=== PATIENT | male | born 1945 | race Caucasian/White ===

== ENCOUNTER → 2021-04-13 10:59 | Outpatient (CLI) | payer MEDICARE, OTHER, SELFPAY ==
--- NOTE | 2021-04-13 | DI.MRI.S_ITS ---
PROCEDURE: MR LUMBAR SPINE WO CON INDICATIONS: Radiculopathy, lumbar region TECHNIQUE: Noncontrast sagittal T1 spin echo and T2 fast echo, sagittal STIR, axial T1 and T2 fast spin echo through the lumbar spine. In cases with scoliosis, additional coronal T2 fast spin echo may be performed. COMPARISON: [facility], CT, KIDNEY/ URETER/BLADDER, 10/04/2017, 10:50. FINDINGS: Image quality: Excellent. Alignment and Curvature: S shaped thoracolumbar scoliosis noted. Bone Marrow: Degenerative endplate changes noted at L4-5. No acute vertebral body compression fractures. Anterior interbody fusion or non segmentation noted at T10-11 and T11-12, better depicted on the prior CT Spinal Cord: Conus medullaris terminates at the L1 level. Visualized cord demonstrates normal signal and size. Paraspinous Soft Tissues: No paravertebral masses. T12-L1: Disc space narrowing and anterior osteophyte present. No central stenosis. Minimal retrolisthesis and facet hypertrophy results in moderate bilateral foraminal stenosis. L1-L2: Moderate disc space narrowing and circumferential disc bulge associated with mild central stenosis. Hypertrophic facet joints result in moderate left and severe right foraminal stenosis. L2-L3: Moderate disc space narrowing, circumferential disc bulge and hypertrophic facet joints associated mild central stenosis and effacement of the lateral recesses. There is severe bilateral foraminal stenosis. L3-L4: Moderate disc space narrowing, circumferential disc bulge combines with ligamentum flavum laxity and hypertrophic facet joints to result in severe central stenosis, narrowing the AP diameter of the thecal sac to 8 mm. There is severe bilateral foraminal stenosis present as well. L4-L5: Moderate disc space narrowing with circumferential disc bulge and hypertrophic facet joints results in grade 1 anterior spondylolisthesis of L4 on L5. Ligamentum flavum redundancy present as well. There is severe central stenosis, narrowing the AP diameter of the thecal sac to 6 mm. Severe bilateral foraminal stenosis greater on the right. L5-S1: Moderate disc space narrowing with circumferential disc bulge and hypertrophic facet joints present. Mild central stenosis and moderate bilateral foraminal stenosis present. IMPRESSION: 1. Multilevel degenerative disc disease, thoracolumbar S-shaped scoliosis, and arthropathy resulting in varying degrees of central and foraminal stenosis including severe central and bilateral foraminal stenosis at L3-4 and L4-5. 2. Anterior interbody fusion or non segmentation at T10-11 and T11-12 is partially imaged and better depicted on prior 2018 CT. Approved by: Diogenes Parrish M.D. on 04/13/2021 at 16:14
== END ==
PROVIDERS: PCP Family Medicine; Referring Provider Orthopaedic Surgery; Visit Provider Orthopaedic Surgery
DX: M51.16 Intervertebral disc disorders with radiculopathy, lumbar region (principal); M51.17 Intervertebral disc disorders with radiculopathy, lumbosacral region; M41.85 Other forms of scoliosis, thoracolumbar region; M47.26 Other spondylosis with radiculopathy, lumbar region; M47.27 Other spondylosis with radiculopathy, lumbosacral region; M48.061 Spinal stenosis, lumbar region without neurogenic claudication; M48.07 Spinal stenosis, lumbosacral region; Z98.1 Arthrodesis status
CPT/HCPCS: 72148

== ENCOUNTER → 2021-06-29 08:58 | Outpatient (CLI) | payer MEDICARE, OTHER, SELFPAY ==
[2021-06-29 10:10] LABS: Add Manual Diff / Slide Review NO; Basophils Absolute Auto 100 /uL (0-100); Basophils Percent Auto 0.9 % (0-2); Eosinophils Absolute Auto 300 /uL (0-450); Eosinophils Percent Auto 4.6 % (2-4); Hematocrit 40.1 % (41-53); Hemoglobin 13.4 g/dL (13.5-17.5); Lymphocytes Absolute Auto 1800 /uL (1100-4500); Lymphocytes Percent Auto 30.5 % (25-40); Mean Corpuscular HGB Conc 33.3 % (30-36); Mean Corpuscular Hemoglobin 31.6 PG (26-34); Mean Corpuscular Volume 94.8 fL (80-100); Monocytes Absolute Auto 700 /uL (0-900); Monocytes Percent Auto 11.5 % (3-14); Neutrophils Absolute Auto 3100 /uL (1500-7000); Neutrophils Percent Auto 52.5 % (50-75); Platelet Count 258 X10^3/uL (150-400); Red Blood Cell Count 4.23 X10^6/uL (4.5-5.9); Red Cell Distribution Width 13.6 % (11.6-14.8); White Blood Cell Count 5.9 X10^3/uL (4.5-11.0)
[2021-06-29 10:12] LABS: Hemoglobin A1C% w Est Avg Glu 5.2 % (4.0-6.0)
[2021-06-29 10:33] LABS: BUN Creatinine Ratio 30.3 (6-22); Blood Urea Nitrogen 20 mg/dL (9-20); Calcium 9.5 mg/dL (8.4-10.2); Carbon Dioxide 27 mmol/L (22-32); Chloride 103 mmol/L (98-107); Estimated Glomerular Filt Rate > 60.0 mL/min (>60); Glucose 97 mg/dL (80-110); HEMOLYSIS < 15 (0-50); Potassium 4.2 mmol/L (3.4-5.1); Sodium 138 mmol/L (137-145)
== END ==
PROVIDERS: PCP Family Medicine; Referring Provider Orthopaedic Surgery; Visit Provider Orthopaedic Surgery
DX: Z01.818 Encounter for other preprocedural examination (principal); R73.9 Hyperglycemia, unspecified; M25.562 Pain in left knee
CPT/HCPCS: 36415; 80048; 83036; 85025; 93005; 93010

== ENCOUNTER 2021-07-11 08:57 | Observation (INO) | payer MEDICARE, OTHER, SELFPAY ==
[2021-06-28 13:42] VITALS: BMI 24.5
[2021-07-10] VITALS (8 sets, daily range): BP systolic 101–138; BP diastolic 53–86; PULSE 68–78; RESP 10–19; TEMP 36.6–36.8; O2SAT 94–99; BMI 25.5
[2021-07-10] MEDS: PREGABALIN 75 MG CAPSULE PO (14:06)
[2021-07-10] MEDS: CELECOXIB 200 MG CAPSULE PO (14:06)
[2021-07-10] MEDS: ACETAMINOPHEN 325 MG TABLET 975 MG PO (14:07)
[2021-07-10 14:25] LABS: COVID19 -Nasal RAPID Negative (Negative)
[2021-07-10] MEDS: LACTATED RINGERS 1,000 ML 42 ML IV (14:29)
--- NOTE | 2021-07-10 14:41 | SUR.OPER ---
Supine on padded OR bed. Pillow under head, arms secured on padded armboards <90 degree abduction. Safety belt across torso. Non-operative leg secured with tape over blanket over lower leg. Operative leg secured in [employer] positioner. Foam padded brace at thigh of operative leg.
--- NOTE | 2021-07-10 14:45 | DI.RAD.S_ITS ---
PROCEDURE: XR KNEE LT 1TO2V INDICATIONS: postop prosthesis placement TECHNIQUE: 2 views of the knee were acquired. COMPARISON: None. FINDINGS: Bones: Status post left total knee arthroplasty. There is expected post operative alignment. Hardware appears intact. No acute fracture. Soft tissues: Expected postsurgical sequela IMPRESSION: Expected post operative appearance Dictated by: Dima Phelps M.D. on 07/11/2021 at 10:01 Approved by: Dima Phelps M.D. on 07/11/2021 at 10:02
--- NOTE | 2021-07-10 14:52 | PM.PREOP ---
Pre-operative Note COVID-19 COVID-19 status: Negative Result date/Date tested (Pos, Neg/Pending): 07/10/21 Interval Note History & Physical reviewed/Exam performed by Physician: Yes Changes to H&P: No
[2021-07-10] MEDS: CEFAZOLIN 1 GM VIAL 2 GM IV (15:48)
[2021-07-10] MEDS: TRANEXAMIC ACID 1,000 MG VIAL 1000 MG INJ ×2 (15:49→16:49)
--- NOTE | 2021-07-10 15:58 | PM.PROC.1 ---
Procedures Date/Time Date of procedure: 07/10/21 Time of procedure: 15:24 Nerve Block Time out performed: Yes Local anesthetic used: bupivacaine 0.25% Location of anesthetic used: LEFT Amount of anesthesia used (mL): 20 Nerve blocks: femoral (adductor canal) Procedure successful: Yes Patient tolerated procedure: well and no complications Complications: none Additional comments: Adductor canal nerve block performed for post-op pain control at surgeon request. Patient was positioned with IV, O2, monitors and rescue meds available. Prepped and timeout performed. Target identified with continuous ultrasound guidance. 20 mL of bupivicaine 0.25% was injected perineurally with intermittent aspiration and injection. No blood, no paresthesias, no acute complications. Ultrasound pic attained.
[2021-07-10] MEDS: BUPIVACAINE 0.25% (PF) 60 ML, EPINEPHrine 0.3 MG INJ (16:10)
[2021-07-10] MEDS: BUPIVACAINE LIPOSOME 266 MG/20 ML VIAL INJ (16:10)
[2021-07-10] MEDS: MORPHINE 4 MG/ML INJ INJ (16:11)
--- NOTE | 2021-07-10 17:13 | PM.OP.1 ---
Operative Date/Time/Diagnoses Date of procedure: 07/10/21 Time of procedure: 17:13 Pre-op diagnosis: Left knee osteoarthritis Post-op diagnosis: same Procedure & Clinicians Procedure: Left total knee replacement Same procedure as scheduled: Yes Indications: The patient has had progressively worsening left knee pain with radiographic changes consistent with arthritis. Non-operative management has failed and the patient has requested total knee replacement. The risks, benefits and alternatives to surgery were discussed with the patient prior to proceeding. Risks discussed included, but were not limited to, failure to relieve pain, stiffness, infection, nerve damage, deep venous thrombosis, pulmonary embolism, stroke, coma, heart attack, permanent paralysis and , as well as the potential need for eventual revision of the prosthetic. Surgeon: Delonte Magaña [employer] Internship: Bhargav Bowers Click Yes if Unassisted: No Anesthesia Type: General, Peripheral nerve block and Local Operative Notes Findings: Severe tricompartmental osteoarthritis, worst in the medial compartment. Closure Type: primary Specimen(s): none sent Prosthetic devices, grafts, tissues, transplants, or devices: Implants used in this procedure were manufactured by the [employer] and included the BCS II Journey total knee replacement with a size 8 cobalt chromium femoral component, a size 8 left tibial base plate, a 9 mm cross-linked polyethylene insert and a 41 mm oval Davida II patellar component. Applied: implant(s) Estimated Blood Loss (mL): 25 Blood products transfused: none Tourniquet time (min): 50 Procedure in detail: The patient was seen in the pre-operative area, where the left knee was identified as the operative site and this was marked with my initials. The patient received pre-operative antibiotics, and was taken to the operating room and placed on the operative table in the supine position. After satisfactory anesthesia, a multimedia coordinator out was performed. The left leg was encircled with a tourniquet about the proximal thigh, and the leg was prepared from the toes to the tourniquet with ChloroPrep in the usual fashion and draped through sterile drapes. The leg was elevated and exsanguinated with Eschmark bandage and the tourniquet inflated to 250 mmHg pressure. The knee was approached through an approximately 18 cm incision centered over the patella and carried into the knee through a medial parapatellar arthrotomy. The anterior osteophytes and soft tissues were removed. The rotational landmarks of Schley's line and the transepicondylar axis were marked on the femur with electrocautery, and intramedullary guide holes for the femur and tibia were created. The distal femoral cut was made in 6 degrees of valgus using the intramedullary guide at the primary cut setting. The proximal tibial cut was then made using the intramedullary guide, taking 9 mm of bone off the less involved side. The extension gap was checked and the rotation of the femoral component confirmed with the gap balancing blocks. The anterior, posterior and chamfer cuts were then made. The posterior osteophytes and soft tissues were then removed. The posterior capsule was injected with part of a mixture of 60 ml 0.25% Marcaine mixed with 20 ml Exparel and 4 mg of morphine for post-operative pain control. The remainder of this mixture was injected into the capsule and subcutaneous tissues during cement curing. The tibia was prepared with the rotation set by an extra medullary guide. Trial tibial and femoral components were then placed and the intercondylar notch cut through the femoral trial. Range of motion was 0-135 degrees, with good stability throughout the range. The patella was then cut to accommodate the patellar prosthetic. There was no need for a lateral release. The trials were then removed, and the femoral hole plugged with a bone plug. The bone was prepared with pulsatile lavage, and dried with a sponge. Cement was applied and the final prosthetics placed. Excess cement was removed during and after cement curing. After confirming there was no extruded cement posteriorly, the final tibial insert was placed. The knee was copiously irrigated and the tourniquet deflated. Hemostasis was obtained. The capsule was closed with interrupted # 2 polyester sutures. The subcutaneous layer was closed with 3-0 Vicryl, and the skin with a running 3-0 V-Lock suture and Dermabond. An Aquacel Ag dressing was applied and the patient was taken to recovery having tolerated the procedure well. Complications: none Post-operative Condition: stable Disposition: PACU Plan for aftercare: The patient will be maintained on a standard total knee replacement protocol with weight bearing as tolerated. The patient will receive aspirin and sequential compression devices for DVT prophylaxis. The patient will be discharged home when safe for the home environment.
[2021-07-10] MEDS: fentaNYL 100 MCG/2 ML INJ IV ×3 (17:24→17:42)
[2021-07-10] MEDS: OXYCODONE IR 5 MG TABLET PO (17:53)
--- NOTE | 2021-07-10 18:08 | SUR.PHASEI ---
180 Report given to Delfina on acute care. Transporting patient half an hour post last fentanyl dose. VSS, pain 11/26
[2021-07-10] MEDS: LACTATED RINGERS 1,000 ML 100 ML IV (19:39)
[2021-07-10] MEDS: DOCUSATE 100 MG CAPSULE PO (20:12)
[2021-07-10] MEDS: ASPIRIN EC 81 MG TABLET PO (20:12)
[2021-07-10] MEDS: ACETAMINOPHEN 325 MG TABLET 650 MG PO (20:12)
[2021-07-10] MEDS: OXYCODONE IR 10 MG TABLET PO (21:30)
[2021-07-11] MEDS: OXYCODONE IR 5 MG TABLET PO ×2 (01:29→14:18)
[2021-07-11 04:21] VITALS: BP 116/63; PULSE 68; RESP 18; TEMP 36.8; O2SAT 95
[2021-07-11] MEDS: LACTATED RINGERS 1,000 ML 100 ML IV (05:44)
[2021-07-11] MEDS: OXYCODONE IR 10 MG TABLET PO (06:25)
[2021-07-11 07:32] LABS: Hematocrit 37.4 % (41-53); Hemoglobin 12.4 g/dL (13.5-17.5)
[2021-07-11 08:07] VITALS: BP 108/63; PULSE 74; RESP 16; TEMP 37.4; O2SAT 95
[2021-07-11] MEDS: ASPIRIN EC 81 MG TABLET PO (08:23)
[2021-07-11] MEDS: ACETAMINOPHEN 325 MG TABLET 650 MG PO (08:24)
[2021-07-11] MEDS: sulfaSALAzine 500 MG TABLET PO (08:24)
[2021-07-11] MEDS: DOCUSATE 100 MG CAPSULE PO (08:24)
[2021-07-11 08:45] VITALS: O2SAT 95
--- NOTE | 2021-07-11 09:30 | PT.IIE ---
Current Diagnoses Unilateral primary osteoarthritis, left knee (07/11/21) Encounter for procedure for purposes other than remedying health state, unspecified (07/11/21) Surgery Performed Operation Date: 07/10/21 14:45 Actual Procedures p Total Knee Arthroplasty(Left) - Delonte Magaña MD Medical History (Last Reviewed 07/11/21 @ 11:[address] Cho PA-C) Elevated cholesterol [place] (hard of hearing) Kidney stones Osteoarthritis Ulcerative colitis Physical Therapy Inpatient Evaluation/Re-Eval M1 PT/OT-IP Prior Functional Status Start: 07/11/21 12:46 Freq: NEEDED Status: Active Protocol: Document 07/11/21 09:30 AB (Rec: 07/11/21 13:02 AB [id number]) Medical Review Prior Functional Status Medical History Reviewed Yes Communication able to make needs known Mobility and Gait pt stated that he is independent with all mobilities and ambulation without AD Social History Household Members spouse Living Arrangements House Number of Floors (Floors) Two Floors Number of Stairs To Enter/Railing? pt stays on main level of the house has 2 steps without rails to enter Home Environment High Toilet,Walk in Shower, Built-In Shower Seat Home Equipment Front Wheel Walker,Straight Cane,Hand Held Shower,Grab Bars Near Toilet,Grab Bars In Shower M2 PT-IP Current Condition Start: 07/11/21 12:46 Freq: NEEDED Status: Active Protocol: Document 07/11/21 09:30 AB (Rec: 07/11/21 13:02 AB [email or web address]) Physical Therapy Current Condition Current Condition Evaluation Date 07/11/21 Treatment Diagnosis s/p L TKA; difficulty in walking Onset Date 07/10/21 M3 PT-IP Subjective Start: 07/11/21 12:46 Freq: NEEDED Status: Active Protocol: Document 07/11/21 09:30 AB (Rec: 07/11/21 13:02 AB [email or web address]) Subjective Physical Therapy Visit Type Type Initial Evaluation Visit Start Time 09:30 Visit Stop Time 10:36 Total Visit Minutes 66 Number of POULTRY HUSBANDRY TEACHER Visits 0 Physical Therapy Visit Comments Patient Comments agreeable to do PT Therapy Pain Assessment Pain When Pain Assessed At Rest Pain Present Pain Present Pain Reported Location Left Knee Intensity 1 Scale Used increases to 3/10 witih mobility Pain Management Techniques Distraction,Modification of Treatment,Re-positioning, Timing of Activity with Medications M4 PT-IP Mobility and Gait Start: 07/11/21 12:46 Freq: NEEDED Status: Active Protocol: Document 07/11/21 09:30 AB (Rec: 07/11/21 13:02 AB [id number]) PT-Bed Mobility Assessment Supine to Sit Supine to Sit Standby Assistance PT-Transfer Assessment Sit to and From Stand Sit to and from Stand Contact Guard Assistance, Minimal Assistance,Use of Upper Extremities Equipment Transfer Assistive Device Gait Belt,Front Wheeled Walker Orthotic/Prosthetic Devices or Brace: No Transfers Transfer Destination Chair Transfer Technique ambulated using FWW Transfer Ability Level of Assist Minimal Assistance,Moderate Assistance,1 Person Assistance ,Use of Upper Extremities Comments Mobility Comments pt completed supine to sit SBA . able to sit on EOB SBA. completed sit to stand min A and cues. ambulated in room ~ 10 ft mod A using FWW. initial L knee buckling. pt cued for quads activation and stabilizing LLE. pt sat on chair. educated pt on safety and techniques. completed sit to stand from chair CGA. repeated x 2 reps. completed ambulation in room using FWW 40 ft min A and cues. pt presents with increase forward flexion in standing and tends not to use LLE to weight bear. educated pt on techniques and importance of muscle re education and pt stated that he has been moving and doing things that way for a long time. agreed to correct after education. educated pt on stair climbing using SPC. completed up/down step stool mod A to max and cues requiring use of SPC and ORNAMENTAL METAL WORKER. pt sat back on chair and positioned. call light and table placed within reach. informed pt regarding caregiver training. pt initially does not want caregiver training and [place] . informed pt regarding assistance level and safe d/c requirements and agreed with caregiver training. informed nurse regarding pt's mobility and caregiver training plan for the afternoon. Gait Assessment Gait Gait Assistance Required: Minimum Assistance,Moderate Assistance,1 Person Assist Distance (Feet) 40 Able to Maintain Weight Bearing Status Yes During Gait Assistive Devices Assistive Device Gait Belt,Front Wheeled Walker Orthotic/Prosthetic Devices or Brace: No Gait Deviations General Gait Pattern Antalgic,Decreased Stride Length,Decreased Feet Clearance,Step-to Gait Factors Limiting Gait Function Factors Limiting Gait Function Decreased Activity Tolerance, Decreased Strength,Difficulty Following Directions,Limited Range of Motion,Pain,Poor Balance,Poor Safety Awareness Stair Climbing Assessment Evaluation Level of Assist On Stairs Moderate Assistance,Maximal Assistance,1 Person Assistance Devices Stair Climbing Assistive Devices Straight Cane Technique/Endurance Stair Climbing Direction Ascend and Descend Stair Climbing Technique Step to Step Number of Steps Climbed 1 Query Text: Stair Climbing Set # Repetitions (reps) 2 Comments Stair Climbing Comments pls refer to mobiltiy section for details PT-Balance Assessment Sitting Balance and Reactions Static Sitting Balance Ability Good Dynamic Sitting Balance Ability Good Standing Balance and Reactions Static Standing Balance Ability Fair Dynamic Standing Balance Ability Fair Device Used FWW M5 PT-IP Objective Assessments Start: 07/11/21 12:46 Freq: NEEDED Status: Active Protocol: Document 07/11/21 09:30 AB (Rec: 07/11/21 13:02 [email or web address]) Orientation Orientation/Cognition Level of Alertness Alert Orientation Name Language Function Ability No Deficits Noted Safety Awareness Decreased Safety Awareness Memory Description Short Term Impaired Gross Range of Motion Lower Extremity ROM Assessment Left Impaired Impairments L knee flexion ~ 90 deg L knee extension: 20 deg less to 0 Strength Lower Extremity Strength Assessment Left Impaired Hip 4-/5 Knee 3+/5 Sensation Assessment Sensation Gross Sensation WNL Muscle Tone Muscle Tone WNL Yes M6 PT-IP Treatment Start: 07/11/21 12:46 Freq: NEEDED Status: Active Protocol: Document 07/11/21 09:30 AB (Rec: 07/11/21 13:02 [email or web address]) Physical Therapy Treatment Education Education Provided Precautions,Weight Bearing Status,Post-Op Packet,Safety M7 PT-IP Assessment and Plan Start: 07/11/21 12:46 Freq: NEEDED Status: Active Protocol: Document 07/11/21 09:30 AB (Rec: 07/11/21 13:02 [facility]) PT Summary Assessment and Plan Potential Rehabilitation Potential Fair Status of Condition at Evaluation Stable Summary Impairments Pain,ROM,Strength,Balance, Coordination,Sensation,Tone, Cognition,Bed Mobility, Transfers,Gait,Activity Tolerance Assessment Summary pt requiring min A for ambulation using FWW and max A for stair climbing. caregiver training will be conducted this afternoon. pt plans to go home and spouse to assist him. pt stated that he has outpt PT set up. will assess progress for safe d/c plan. Goals Bed Mobility Goal Independent Transfer Goal Independent,Front Wheeled Walker Gait Goal Independent,Front Wheel Walker Gait Distance 300 Other Goals up/down 2 steps SPC mod I Days to Meet Goals 5 Frequency of Treatment Frequency Of Treatment Twice a Day Treatment Plan Physical Therapy Treatment Plan Bed Mobility Training,Transfer Training,Gait Training, Therapeutic Exercise,Balance Retraining,Post Op Education, Discharge Planning,Hot or Cold Pack,Neuromuscular Re-ed, Coordination Retraining,Manual Therapy Weight Bearing Status Weight Bearing Status Weight Bear as Tolerated Allowed Weight Bearing Amount (enter % LLE WBAT or #) (%) Recommendations To Nursing Amount of Assist Needed 1 Person Assist Discharge Recommendations PT Discharge Recommendations Home with Assistance, Outpatient PT Transportation Needs at Discharge Private Vehicle
--- NOTE | 2021-07-11 11:30 | P.DS_ITS ---
History of Present Illness History of Present Illness Date Patient Seen: 07/11/21 Time Patient Seen: 11:32 Chief complaint: Left knee pain s/p left TKA Narrative: Patient is complaining of [id number] left knee pain after his total knee yesterday. He denies any new numbness or tingling. No fevers, chills, night sweats. No shortness of breath or chest pain. Overall he is feeling well and would like to be discharged home to [facility] today. Discharge Providers Provider Date of admission: 07/11/21 08:57 Discharge Date: 07/11/21 Primary care physician: Desmond Brooks MD Consults: 07/10/21 18:10 Consult to Discharge Planning Routine Comment: Consult to Physical Therapy Evaluate & Treat Comment: Physician Instructions: postop TKA protocol Consult to Respiratory Therapy Evaluate & Treat Comment: Physician Instructions: Evaluate and treat Discharge provider: Court Cho PA-C Summary Hospital Course Discharge Diagnosis: Left knee osteoarthritis Hospital Course: Date of procedure: 07/10/21 Time of procedure: 17:13 Procedure & Clinicians Procedure: Left total knee replacement Same procedure as scheduled: Yes Indications: The patient has had progressively worsening left knee pain with radiographic changes consistent with arthritis. Non-operative management has failed and the patient has requested total knee replacement. The risks, benefits and alternatives to surgery were discussed with the patient prior to proceeding. Risks discussed included, but were not limited to, failure to relieve pain, stiffness, infection, nerve damage, deep venous thrombosis, pulmonary embolism, stroke, coma, heart attack, permanent paralysis and , as well as the potential need for eventual revision of the prosthetic. Surgeon: Delonte Magaña Poultry Cutter: Bhargav Bowers Click Yes if Unassisted: No Anesthesia Type: General, Peripheral nerve block and Local Operative Notes Findings: Severe tricompartmental osteoarthritis, worst in the medial compartment. Closure Type: primary Specimen(s): none sent Prosthetic devices, grafts, tissues, transplants, or devices: Implants used in this procedure were manufactured by the [employer] and included the BCS II Journey total knee replacement with a size 8 cobalt chromium femoral component, a size 8 left tibial base plate, a 9 mm cross-linked polyethylene insert and a 41 mm oval Davida II patellar component. Applied: implant(s) Estimated Blood Loss (mL): 25 Blood products transfused: none Tourniquet time (min): 50 Status at Discharge Cognitive/behavioral status at discharge: oriented Functional status at discharge: uses cane/walker Overall status at discharge: patient is progressing back to baseline Exam Vital Signs (past 8 hours): - 07/11/21 04:21 07/11/21 08:07 07/11/21 08:45 Temperature 98.3 F 99.3 F Pulse Rate 68 74 Respiratory Rate 18 16 Blood Pressure 116/63 108/63 Pulse Oximetry 95 95 95 Oxygen Delivery Method Room Air Oxygen Flow Rate 0 Narrative Exam Narrative: Pleasant 76-year-old male, resting comfortably in his chair, no acute distress. Dressing is clean, dry, intact. Bilateral lower extremities: Motor function is grossly intact, sensation is grossly intact to light touch. Calves are soft, nontender to palpation. Objective Labs Result Diagrams: 07/11/21 06:28 Labs: Laboratory Results - last 24 hr 07/10/21 07/11/21 14:00 06:28 Hgb 12.4 L Hct 37.4 L SARS-CoV-2 (PCR) Negative PFSH Medical History Elevated cholesterol [place] (hard of hearing) Kidney stones Osteoarthritis Ulcerative colitis Surgical History History of vasectomy Hx of tonsillectomy S/P foot surgery, left Family History Grandmother Alzheimer's disease Mother Alzheimer's disease Social History household members: spouse Smoking Status: Former smoker alcohol intake: current Discharge Assessment & Plan Assessment and Plan Assessment: Stable status post left total knee arthroplasty Plan of Treatment: -mobilize with PT. Weightbearing as tolerated front wheel walker -continue with current pain regimen and DVT prophylaxis -DC home today to [facility] via the [place], once cleared by PT Discharge Plan Discharge Plan Patient Disposition: Home Discharge orders & Medications Prescriptions: New acetaminophen 500 mg capsule 500 mg PO Q4H MDD Max 6 tabs per day PRN (Reason: fever or pain) Qty: 90 0RF aspirin 81 mg Tablet,Delayed Release (Dr/Ec) 81 mg PO BID 42 Days Qty: 84 0RF Rx Instructions: Prevent blood clots docusate sodium 100 mg Capsule 100 mg PO BID Qty: 30 0RF oxycodone 5 mg Tablet See Rx Instructions .ROUTE .COMPLEX PRN (Reason: Pain, Moderate (4-6)) Qty: 42 0RF Rx Instructions: Take 1-2 tablets by mouth every 4 hours as needed for moderate to severe postoperative pain Continued sulfasalazine 500 MG tablet 500 mg PO Q DAY Qty: 90 1RF Follow up/Referrals: Delonte Magaña MD [Physician] - (10-14 days for postoperative visit) Desmond Brooks MD [Primary Care Provider] - Diet/Activity/Treatments Diet: Diet as Tolerated and Regular Other treatments: Medications: -Aspirin 81mg twice daily x6 weeks to prevent blood clots. -OTC Tylenol 500 mg 1 tablet every 4 hours as needed for pain/fever. Max 6 tablets per day. -Oxycodone 5 mg take 1-2 tablets every 4 hours as needed for moderate-severe pain (narcotic pain medication). -As needed medications: -Ducolax and /or MiraLax as needed for constipation from narcotic pain medications. -Pepcid AC as needed for stomach upset (usually from aspirin or ibuprofen). Dressing/Wound care: -Remove the Jon wrap 48 hours after surgery. -Keep Aquacell dressing in place until postoperative follow-up office visit. -Okay to shower. Keep wound out of direct water stream. No soaking or submerging until all the scabs fall off (approximately 6 weeks). -Please call the office if dressing becomes wet, soiled, or saturated. Activities: -Weight-bearing as tolerated. Use front wheeled walker, and progress to cane wh en safe. -Continue with home exercises as directed by your physical therapist. -Elevate ?toes above the nose if you have significant swelling in your lower leg. (A wedge pillow is easiest.) -Ice your incision as needed for pain/inflammation/swelling. Protect your skin with a folded pillowcase. Follow-up: -Follow-up with your surgeon or PA in the office in 10-14 days after surgery. -Follow-up with your surgeon 6 weeks postoperatively. Call the office if you have chest pain, shortness of breath, significant swelling that will not resolve with elevating, fever over 101?, significantly worsening pain. [facility]: [phone] Skin/Wound/Dressing Care Report to your healthcare provider any signs of infection, such as:: chills, fever, night sweats, unusual drainage and unusual redness Visit Report/Discharge Packet Instructions: DI for Knee Replacement, DI for Prescription Opioid Use Stand Alone Forms: Surgery Discharge Discharge Data Primary Care Provider: Desmond Brooks Attending Provider: Delonte Magaña Quality VTE Deep Vein Thrombosis/Pulmonary Embolism Present on Admission: No
--- NOTE | 2021-07-11 11:55 | PT.IPTN ---
Current Diagnoses Unilateral primary osteoarthritis, left knee (07/11/21) Encounter for procedure for purposes other than remedying health state, unspecified (07/11/21) Surgery Performed Operation Date: 07/10/21 14:45 Actual Procedures p Total Knee Arthroplasty(Left) - Delonte Magaña MD Physical Therapy Treatment Note M2 PT-IP Current Condition Start: 07/11/21 12:46 Freq: NEEDED Status: Active Protocol: Document 07/11/21 09:30 AB (Rec: 07/11/21 13:02 AB [email or web address]) Physical Therapy Current Condition Current Condition Evaluation Date 07/11/21 Treatment Diagnosis s/p L TKA; difficulty in walking Onset Date 07/10/21 M3 PT-IP Subjective Start: 07/11/21 12:46 Freq: NEEDED Status: Active Protocol: Document 07/11/21 11:55 AB (Rec: 07/11/21 13:09 AB [email or web address]) Subjective Physical Therapy Visit Type Type Treatment Note Visit Start Time 11:55 Visit Stop Time 12:20 Total Visit Minutes 25 Number of COTTON TIER Visits 0 Physical Therapy Visit Comments Patient Comments pt's spouse arrived for caregiver training; pt requested early 2nd session to catch the after ferry to go home Therapy Pain Assessment Pain When Pain Assessed At Rest Pain Present Pain Present Pain Reported Location Left Knee Intensity 5 Scale Used Numeric (0 - 10) Pain Management Techniques Distraction,Modification of Treatment,Re-positioning, Timing of Activity with Medications M4 PT-IP Mobility and Gait Start: 07/11/21 12:46 Freq: NEEDED Status: Active Protocol: Document 07/11/21 11:55 AB (Rec: 07/11/21 13:09 AB [email or web address]) PT-Transfer Assessment Sit to and From Stand Sit to and from Stand Contact Guard Assistance Equipment Transfer Assistive Device Gait Belt,Front Wheeled Walker Orthotic/Prosthetic Devices or Brace: No Comments Mobility Comments caregiver training conducted. educated spouse on how to use safety belt and how to assist pt. pt stated that he is ok with bed mobility and does not need to do training with bed mobility. spouse was able to put safety belt on pt. assisted pt with sit to stand and ambulation in room using fWW min A. educated spouse on how to assist pt with stair climbing. pt ambulated out of his room using FWw with spouse assisting min A ~ 40 ft and completed up/down platform step using SPC and URGENT CARE NURSE PRACTITIONER. completed up/down steps x 5 reps. spouse was able to assist pt with stairs. pt ambulated back to his room and sat on chair. pt and spouse has no other concerns. call light and table placed within reach. informed nurse that pt is cleared to d/c home with spouse to assist. Gait Assessment Gait Gait Assistance Required: Minimum Assistance Distance (Feet) 30 Able to Maintain Weight Bearing Status Yes During Gait Assistive Devices Assistive Device Gait Belt,Front Wheeled Walker Orthotic/Prosthetic Devices or Brace: No Gait Deviations General Gait Pattern Antalgic,Decreased Stride Length,Decreased Feet Clearance Factors Limiting Gait Function Factors Limiting Gait Function Decreased Activity Tolerance, Decreased Strength,Difficulty Following Directions,Limited Range of Motion,Pain,Poor Balance,Poor Safety Awareness Stair Climbing Assessment Evaluation Level of Assist On Stairs Moderate Assistance,1 Person Assistance Devices Stair Climbing Assistive Devices Straight Cane Technique/Endurance Stair Climbing Direction Ascend and Descend Stair Climbing Technique Step to Step Number of Steps Climbed 1 Stair Climbing Set # Repetitions (reps) 5 Comments Stair Climbing Comments pls refer to mobility section for details M5 PT-IP Objective Assessments Start: 07/11/21 12:46 Freq: NEEDED Status: Active Protocol: Document 07/11/21 09:30 AB ([email or web address] Orientation Orientation/Cognition Level of Alertness Alert Orientation Name Language Function Ability No Deficits Noted Safety Awareness Decreased Safety Awareness Memory Description Short Term Impaired Gross Range of Motion Lower Extremity ROM Assessment Left Impaired Impairments L knee flexion ~ 90 deg L knee extension: 20 deg less to 0 Strength Lower Extremity Strength Assessment Left Impaired Hip 4-/5 Knee 3+/5 Sensation Assessment Sensation Gross Sensation WNL Muscle Tone Muscle Tone WNL Yes M6 PT-IP Treatment Start: 07/11/21 12:46 Freq: NEEDED Status: Active Protocol: Document 07/11/21 11:55 AB (Rec: 07/11/21 13:[email or web address] Physical Therapy Treatment Education Education Provided Safety M7 PT-IP Assessment and Plan Start: 07/11/21 12:46 Freq: NEEDED Status: Active Protocol: Document 07/11/21 11:55 AB (Rec: 07/11/21 13:09 AB [email or web address]) PT Summary Assessment and Plan Potential Rehabilitation Potential Good Summary Impairments Pain,ROM,Strength,Balance, Coordination,Sensation,Tone, Cognition,Bed Mobility, Transfers,Gait,Activity Tolerance Progress Towards Goals Slow Progress due to Pain Assessment Summary caregiver training conducted and spouse was able to assist pt safely. pt plans to go home with spouse to assist and has outpt PT scheduled. pt may go home when medically stable. Goals Bed Mobility Goal Independent Transfer Goal Independent,Front Wheeled Walker Gait Goal Independent,Front Wheel Walker Gait Distance 300 Other Goals up/down 2 steps SPC mod I Days to Meet Goals 5 Frequency of Treatment Frequency Of Treatment Twice a Day Treatment Plan Physical Therapy Treatment Plan Bed Mobility Training,Transfer Training,Gait Training, Therapeutic Exercise,Balance Retraining,Post Op Education, Discharge Planning,Hot or Cold Pack,Neuromuscular Re-ed, Coordination Retraining,Manual Therapy Weight Bearing Status Weight Bearing Status Weight Bear as Tolerated Allowed Weight Bearing Amount (enter % LLE WBAT or #) (%) Recommendations To Nursing Amount of Assist Needed 1 Person Assist Discharge Recommendations PT Discharge Recommendations Home with Assistance, Outpatient PT Transportation Needs at Discharge Private Vehicle
[2021-07-11] MEDS: INFLUENZA HD VACCINE 0.7 ML SYRINGE IM (12:56)
--- NOTE | 2021-07-11 15:21 | PC.NURSE ---
Discharge Note Patient A&O, VSS, RA, no further complaints of pain/discomfort. Discharge packet reviewed with patient all questions/concerns addressed. PIV removed. All belongings packed and given to patient along with discharge packet. Patient taken down via wheelchair to POV with .
--- NOTE | 2021-07-11 15:33 | PC.NURSE ---
Discharge Note Patient A&O, VSS, no complaints of pain/discomfort. Discharge packet reviewed with patient and all questions/concerns addressed. PIV discontinued. All belongings packed and given to patient along with discharge packet. Patient aware that prescriptions for oxycodone were sent to preferred pharmacy. Per patient preferred pharmacy in [facility] to be closed upon arrival. This RN attempted to change prescriptions to a pharmacy in town that would be available prior to ferry boarding. [facility] medical assistant in OR at the time and this RN unable to contact by phone, voicemail left by this RN. Patient decided to go home and states that he will make it through the night and miner pick prescriptions in the morning. Patient and unable to wait for later ferry to [facility] and decided to go home. DONNA Cho updated when out of OR. Patient taken down via wheelchair to [facility].
== END 2021-07-11 14:45 | disposition home or self-care (01) ==
LOC: OR 09:09 → AC 09:09
PROVIDERS: Admitting Provider Orthopaedic Surgery; PCP Family Medicine; Referring Provider Orthopaedic Surgery; Visit Provider Orthopaedic Surgery
PROC: 0SRD0JZ Replacement of Left Knee Joint with Synthetic Substitute, Open Approach (ICD-10-PCS; CPT 27447; principal; 2021-07-10 14:45)
DX: M17.12 Unilateral primary osteoarthritis, left knee (principal); K50.90 Crohn's disease, unspecified, without complications; Z23 Encounter for immunization; Z20.822 Contact with and (suspected) exposure to COVID-19
CPT/HCPCS: 27447; 36415; 73560; 85014; 85018; 87635; 90471; 90662; 97161; 97530; C1776; C9803; G0378; C9290; J0171; J0690; J1100; J2270; J2405; J2704; J3010

== ENCOUNTER → 2022-03-21 15:26 | Outpatient (CLI) | payer MEDICARE, OTHER, SELFPAY ==
[2021-07-10 13:44] VITALS: BMI 25.5
--- NOTE | 2022-03-21 15:29 | DI.MRI.S_ITS ---
PROCEDURE: MR LUMBAR SPINE WO CON INDICATIONS: SPONDYLOLISTHESIS,LUMBAR REGION TECHNIQUE: Noncontrast sagittal T1 spin echo and T2 fast echo, sagittal STIR, and T2 fast spin echo through the lumbar spine. In cases with scoliosis, additional coronal T2 fast spin echo may be performed. COMPARISON: [facility], CR, XR LUMBAR SPINE 2 OR 3 VIEWS, 01/29/2022, 11:18. [facility], , MR LUMBAR SPINE WO CON, 04/13/2021, 11:14. FINDINGS: Image quality: Excellent. Alignment and Curvature: There is mild, approximately 9 millimeters of L4-L5 anterolisthesis. There is trace, approximately 2-3 millimeters of L1-L2, L2-L3 and L3-L4 retrolisthesis. Bone Marrow: Modic type 1 reactive endplate changes noted adjacent to the L4-L5 disc. Modic type 2 reactive endplate changes noted adjacent to the L5-S1 disc. No acute vertebral body compression fractures. Spinal Cord: Conus medullaris terminates at the T12-L1 disc level. Visualized cord demonstrates normal signal and size. Paraspinous Soft Tissues: No paravertebral masses. T12-L1: Loss of disc signal and height. Mild, diffuse disc bulge. Mild bilateral facet hypertrophy. Mild narrowing of the central canal. Mild bilateral neural foraminal narrowing. No neural compression. L1-L2: Loss of disc signal and height. Mild, diffuse disc bulge. Mild bilateral facet hypertrophy. Mild narrowing of the central canal. Mild bilateral neural foraminal narrowing. No neural compression. L2-L3: Loss of disc signal and height. Mild, diffuse disc bulge. Fglb-[id number] bilateral facet hypertrophy. Moderate ligamentum flavum hypertrophy. Mild to moderate narrowing of the central canal. Moderate bilateral neural foraminal narrowing. No neural compression. L3-L4: Loss of disc signal and height. Mild to moderate diffuse disc bulge. Moderate bilateral facet hypertrophy. Severe ligamentum flavum hypertrophy. Moderate to severe narrowing of the central canal. Severe right and moderate left neural foraminal narrowing with slight compression of the exiting right L3 nerve root. L4-L5: Loss of disc signal and height. Mild, diffuse disc bulge. Severe bilateral facet hypertrophy. Severe narrowing of the central canal with compression of the nerve roots of the cauda equina. Severe right and moderate left neural foraminal narrowing with slight compression of the exiting right L4 nerve root. L5-S1: Loss of disc signal and height. Mild, diffuse disc bulge. Moderate bilateral facet hypertrophy. Mild narrowing of the central canal. Moderate bilateral neural foraminal narrowing. No neural compression IMPRESSION: 1. Grade 1 L4-L5 degenerative spondylolisthesis. 2. Multilevel degenerative disc disease. 3. Multilevel facet arthropathy. 4. Severe L4-L5 central canal narrowing with compression of the traversing nerve roots of the cauda equina. 5. Severe right L3-L4 and L4-L5 neural foraminal narrowing with slight compression of the exiting right L3 and right L4 nerve roots. Dictated by: Marielos Hogan MD, PhD on 03/21/2022 at 16:35 Approved by: Marielos Hogan MD, PhD on 03/21/2022 at 16:41
== END ==
PROVIDERS: PCP Family Medicine; Referring Provider Orthopaedic Surgery; Visit Provider Orthopaedic Surgery
DX: M43.16 Spondylolisthesis, lumbar region (principal); M51.16 Intervertebral disc disorders with radiculopathy, lumbar region; M51.17 Intervertebral disc disorders with radiculopathy, lumbosacral region; M47.26 Other spondylosis with radiculopathy, lumbar region; M47.27 Other spondylosis with radiculopathy, lumbosacral region; M48.061 Spinal stenosis, lumbar region without neurogenic claudication; M48.07 Spinal stenosis, lumbosacral region; G89.29 Other chronic pain
CPT/HCPCS: 72148

== ENCOUNTER → 2023-02-12 09:11 | Outpatient (CLI) | payer MEDICARE, OTHER, SELFPAY ==
[2021-07-10 13:44] VITALS: BMI 25.5
--- NOTE | 2023-02-12 | DI.MRI.S_ITS ---
PROCEDURE: MR LUMBAR SPINE WO CON INDICATIONS: Spinal stenosis, lumbar region TECHNIQUE: Noncontrast sagittal T1 spin echo and T2 fast echo, sagittal STIR, and T2 fast spin echo through the lumbar spine. In cases with scoliosis, additional coronal T2 fast spin echo may be performed. COMPARISON: [facility], MR, MR LUMBAR SPINE WO CON, 03/21/2022, 15:38. FINDINGS: Image quality: Excellent. Alignment and Curvature: S shaped thoracolumbar scoliosis. Grade 2 anterior spondylolisthesis L4-5. Grade 1 retrolisthesis L3-4. Bone Marrow: Interbody fusion noted in the lower thoracic spine, partially imaged. Remainder of the bone marrow signal unremarkable. Vertebral body height in the lumbar spine unremarkable Spinal Cord: Conus medullaris terminates at the L1 level. Visualized cord demonstrates normal signal and size. Paraspinous Soft Tissues: No paravertebral masses. T12-L1: Disc space narrowing present. No central stenosis. Moderate bilateral foraminal stenosis. L1-L2: Disc space narrowing with mild disc bulge. No central stenosis. Severe right and no left foraminal stenosis L2-L3: Disc space narrowing with circumferential disc bulge and ligamentum flavum laxity results in moderate central stenosis. Moderate left and severe right foraminal stenosis L3-L4: Disc space narrowing posterior disc bulge and hypertrophic facet joints with ligamentum flavum laxity results in moderate central stenosis. Severe right and left foraminal stenosis L4-L5: Disc space narrowing with circumferential disc bulge and hypertrophic facet joints combined with ligamentum flavum laxity to result in severe central stenosis. Severe bilateral foraminal stenosis L5-S1: Disc space narrowing and circumferential disc bulge. No central stenosis. Moderate bilateral foraminal stenosis IMPRESSION: Multilevel degenerative disc disease and arthropathy results in varying degrees of central and foraminal stenosis including severe central and bilateral foraminal stenosis L4-5, similar to the prior exam Approved by: Diogenes Parrish M.D. on 02/12/2023 at 19:15
== END ==
PROVIDERS: PCP Family Medicine; Referring Provider Physical Medicine & Rehabilitation; Visit Provider Physical Medicine & Rehabilitation
DX: M48.062 Spinal stenosis, lumbar region with neurogenic claudication (principal); M48.07 Spinal stenosis, lumbosacral region; M51.36 Other intervertebral disc degeneration, lumbar region; M51.37 Other intervertebral disc degeneration, lumbosacral region; M47.816 Spondylosis without myelopathy or radiculopathy, lumbar region; Z98.1 Arthrodesis status
CPT/HCPCS: 72148

== ENCOUNTER → 2023-06-10 12:12 | Outpatient (CLI) | payer MEDICARE, OTHER, SELFPAY ==
[2021-07-10 13:44] VITALS: BMI 25.5
--- NOTE | 2023-06-10 | DI.MRI.S_ITS ---
PROCEDURE: MR SHOULDER RT WO CON INDICATIONS: right should rotator cuff injury TECHNIQUE: Noncontrast oblique coronal T2 fast spin echo with fat saturation, oblique sagittal T1 spin echo and T2 fast spin echo with fat saturation, axial T1 spin echo and T2 fast spin echo with fat saturation through the shoulder. COMPARISON: None. FINDINGS: Image quality: Excellent. Rotator cuff: There is full-thickness tear of the supraspinatus and subscapularis tendons. There is high-grade partial-thickness tear of the infraspinatus and subscapularis tendons. Sagittal images demonstrate severe subscapularis muscle atrophy and mild supraspinatus and infraspinatus muscle atrophy. Bones and bursae: No bone marrow contusions or fractures. [id number] acromioclavicular and glenohumeral joint degeneration. The acromion demonstrates conventional anatomy, without an os acromiale. There is a small joint effusion. Capsule and soft tissues: There is diffuse degenerative labral fraying. The long head of the biceps tendon is torn with tendon retraction. The rotator interval appears normal, without fibrosis. The coracohumeral ligament is normal in thickness. IMPRESSION: 1. Full-thickness tear of the supraspinatus and subscapularis tendons. 2. High-grade partial-thickness tear of the infraspinatus tendon. 3. Torn long head of the biceps tendon with tendon retraction. 4. Efsdxqso-[id number] acromioclavicular and glenohumeral joint degeneration. 5. Diffuse degenerative labral fraying. Dictated by: Meagan Sanders M.D. on 06/10/2023 at 20:35 Approved by: Meagan Sanders M.D. on 06/11/2023 at 10:55
== END ==
PROVIDERS: PCP Family Medicine; Referring Provider Family Medicine; Visit Provider Family Medicine
DX: S46.001D Unspecified injury of muscle(s) and tendon(s) of the rotator cuff of right shoulder, subsequent encounter (principal); S46.111A Strain of muscle, fascia and tendon of long head of biceps, right arm, initial encounter; M19.011 Primary osteoarthritis, right shoulder
CPT/HCPCS: 73221

== ENCOUNTER → 2025-07-26 10:48 | Outpatient (CLI) | payer MEDICARE, OTHER, SELFPAY ==
[2021-07-10 13:44] VITALS: BMI 25.5
--- NOTE | 2025-07-26 10:51 | DI.MRI.S_ITS ---
PROCEDURE: MR LUMBAR SPINE WO CON INDICATIONS: lumbar radiculopathy TECHNIQUE: Noncontrast sagittal T1 spin echo and T2 fast echo, sagittal STIR, and T2 fast spin echo through the lumbar spine. In cases with scoliosis, additional coronal T2 fast spin echo may be performed. COMPARISON: [facility], MR, MR LUMBAR SPINE WO CON, 02/12/2023, 9:46. FINDINGS: Image quality: Diagnostic. Images are limited by metallic susceptibility, patient motion, and other artifacts which limit [id number]. New postoperative changes are noted with pedicle screws and posterior fixation rods L3-L5. Laminectomies L3-L4 fluid in the surgical bed posterior to the thecal sac at L4 level measures up to approximately 3.5 cm cc by 1.2 cm AP (series 4, image 8) by 2 cm transverse may represent expected postoperative changes, seroma or other. Whether this fluid is infected or not cannot be determined by MRI. Moderate diffuse soft tissue edema posterior paraspinous muscles and soft tissues with muscular fatty atrophy, progressed. Moderate central stenosis at L2-3 similar to the prior exam. Central stenoses at L3-4 and L4-5 markedly improved. Mild grade 1 anterolisthesis L4 on L5 decreased compared to the prior exam. Moderate to severe degenerative changes throughout the lumbar spine with degenerative disc disease, disc desiccation, disc height loss, Modic endplate type changes, broad-based posterior and circumferential disc bulges, facet osseous and ligamentous hypertrophic changes similar to the prior exam. Bilateral moderate to severe neural foraminal narrowing throughout the lumbar spine from L1-2 through L5-S1 slightly improved at L three-four and L4-5 otherwise unchanged. IMPRESSION: Postoperative changes as discussed above. Marked degenerative changes. Previously noted central stenoses L3-4 and L4-5 improved, unchanged L2-3. REFERENCE DELETE FROM FINAL REPORT Less common manifestations of disc degeneration: * dorsal epidural disc herniation. * intradural disc herniation (may have beaklike morphology). * symptomatic thoracic herniation: often, calcified, intradural. * far lateral disc herniation. * discal cyst: may have blood-fluid level. * fibrocartilaginous embolism of disc material to spinal cord. * calcified disc or bony spicule causing spinal CSF leak. Lumbar disc nomenclature v2.0: Recommendations of the combined task forces of the [place] [employer], [place] [employer], and [place] [employer] Annular fissures: seen as high intensity zones on MRI. Concentric, radial, transverse. Degeneration encompasses: desiccation, fibrosis, disc narrowing, diffuse bulge, fissuring, mucinous degeneration of annulus, intradiscal gas, vertebral apophyseal osteophytes, end plate defects, inflammatory changes and sclerosis (Modic types I-III). Disc herniation: localized or focal displacement of disc material less than 25% (90 degrees) of disc periphery on axial images. Diffuse bulging and asymmetric bulging (>25%) are not considered herniation. * Protrusion, extrusion, sequestration. * Disc fragment can migrate (refers only to position, not contiguity). * Intravertebral herniations (aka Schmorl nodes). * Herniations may be contained (if covered by intact outer annulus and/or PLL) vs uncontained. Subligamentous is considered synonymous with contained. A sequestered and/or migrated disc fragment can still be contained. Canal and foraminal stenosis: use 2-D measurements at site of most marked compromise. * Mild: canal compromise of less than 1/3. * Moderate: canal compromise of 1/3 to 2/3. * Severe: canal compromise of greater than 2/3. Location descriptors: * Central, right/left central, right/left subarticular, right/left foraminal, right/left extraforaminal or far lateral. Right/left central should supersede paracentral (a more general term). * In sagittal plane: discal, infrapedicular, suprapedicular, or pedicular. Dictated by: Mike Mercado M.D. on 07/28/2025 at 10:33 Approved by: Mike Mercado M.D. on 07/28/2025 at 10:41
--- NOTE | 2025-07-26 10:51 | DI.MRI.S_ITS ---
PROCEDURE: MR PELVIC PROSTATE PROTOCOL INDICATIONS: elevated PSA; lumbar radiculopathy TECHNIQUE: Coronal HASTE, axial T1 FSE with fat saturation, 3-plane nonbreath-hold T2 FSE. After the administration of contrast, dynamic axial, delayed axial and coronal VIBE or 2-D FLASH with fat saturation through the pelvis. Diffusion weighted imaging and ADC was performed. COMPARISON: None. FINDINGS: Image quality: Diffusion weighted and dynamic contrast enhanced images are diagnostic. Prostate: Gland size is 5.6 x 3.8 x 5.4 cm; ellipsoid gland volume is 60 mL. PSA was not provided. Transitional zone heterogenous nodules are present, either well encapsulated or mostly encapsulated, compatible with PI-RADS 1 or 2 likely BPH nodules. Left apex posterior peripheral zone lesion measures 2.2 x 1.3 by 1.6 cm (5/17, 6/16). DWI score 5. T2 score 5. DCE positive. PI-RADS 5. A small portion of this lesion extends to the right gland. There is 3-4 mm of extracapsular extension. Seminal vesicles appear clear. Genitourinary system: Unremarkable urinary bladder Bowel and peritoneum: Increased colonic fecal loading. Diffuse colonic diverticula. No bowel obstruction identified. No ascites. Nodes and vessels: No lymphadenopathy by size criteria. Mildly prominent left pelvic lymph nodes are seen for example left external iliac measuring 0.7 cm on image 22/78. No aneurysmal artery identified. Soft tissues: No significant pelvic wall abnormality. Bones: Lumbosacral degenerative changes are present. There is diffuse synovial and periarticular enhancement around the left hip. Background arthritic changes are present. Enhancement also involves the left femoral neck and head. IMPRESSION: PI-RADS 5 lesion representing prostate adenocarcinoma with minimal extracapsular extension at the left peripheral zone apex. Seminal vesicles appear clear. No aggressive osseous abnormality. Mildly prominent left pelvic lymph nodes are present. These are not enlarged by size criteria. Consider prostate PET-CT to further assess if clinically indicated. Partially visualized left femoral a synovial, and periarticular enhancement. This most commonly represents arthritis and/or trauma. Underlying lesion or infection can appear similar, though less common. Consider dedicated left hip imaging and correlation with clinical symptoms. This study was marked in PACS for communication. Dictated by: Freddie Cordoba M.D. on 07/26/2025 at 13:03 Approved by: Freddie Cordoba M.D. on 07/26/2025 at 13:09
== END ==
PROVIDERS: PCP Family Medicine; Referring Provider Family Medicine; Visit Provider Family Medicine
DX: C61 Malignant neoplasm of prostate (principal); R97.20 Elevated prostate specific antigen [PSA]; M47.26 Other spondylosis with radiculopathy, lumbar region; M48.061 Spinal stenosis, lumbar region without neurogenic claudication; R29.818 Other symptoms and signs involving the nervous system; M25.552 Pain in left hip; M25.562 Pain in left knee; K57.90 Diverticulosis of intestine, part unspecified, without perforation or abscess without bleeding; G89.29 Other chronic pain; Z98.1 Arthrodesis status
CPT/HCPCS: 72148; 72197; A9579